=== PATIENT | female | born 1990 | race Caucasian/White ===

== ENCOUNTER 2021-08-22 13:20 | Observation (INO) | payer BC ==
[~2021-08-22] VITALS: Ht 160 cm; Wt 66.7 kg
[2021-08-22] MEDS ORDERED: PNV1TABL5 PO (13:36)
[2021-08-22 16:37] VITALS: BP 110/66
== END 2021-08-22 16:35 | disposition home or self-care (01) ==
LOC: MLD 13:20
PROVIDERS: ADMIT Obstetrics & Gynecology; ATTEND Obstetrics & Gynecology
DX: O36.8130 Decreased fetal movements, third trimester, not applicable or unspecified (principal); Z20.822 Contact with and (suspected) exposure to COVID-19; O48.0 Post-term pregnancy; Z3A.40 40 weeks gestation of pregnancy
CPT/HCPCS: 59025; 76815; 81000; 87426; G0378; Q0092

== ENCOUNTER 2021-08-29 14:30 | Inpatient (IN) | payer BC ==
[~2021-08-29] VITALS: Ht 160 cm; Wt 67.6 kg
[~2021-08-29 14:30] MED LIST: PNV1TABL5 PO
[2021-08-29] MEDS ORDERED: OXYTOCIN 20 UNITS in LACTATED RINGERS 1,000 ML IV SCH (14:50)
[2021-08-29] MEDS ORDERED: MORPHINE SULFATE 5 MG/ML VIAL IVP PRN (14:50)
[2021-08-29] MEDS ORDERED: ONDANSETRON 4 MG/2 ML VIAL IVP PRN (14:50)
[2021-08-29] MEDS ORDERED: METHYLERGONOVINE 0.2 MG/ML AMP IM PRN (14:50)
[2021-08-29 15:38] LABS: APPEARANCE,URINE CLEAR (CLEAR); BILIRUBIN,URINE NEGATIVE (NEGATIVE); BLOOD, URINE TRACE-I (NEGATIVE); COLOR,URINE YELLOW (YELLOW); LEUKOCYTE ESTERASE ,URINE NEGATIVE (NEGATIVE); NITRITE, URINE NEGATIVE (NEGATIVE); UGLUCOSE NEGATIVE (NEGATIVE)
[2021-08-29 15:43] LABS: BASOPHILS % (AUTO) 0.7 % (0.0-2.0); EOSINOPHILS # (AUTO) 0.1 K/uL (0-0.4); EOSINOPHILS % (AUTO) 1.3 % (0.0-4.0); HEMATOCRIT 40.4 % (36-48); HEMOGLOBIN 13.9 g/dL (12.0-16.0); LYMPHOCYTES # (AUTO) 1.6 K/uL (2.5-16.5); LYMPHOCYTES % (AUTO) 22.5 % (20.5-51.1); MEAN CORPUSCULAR HEMOGLOBIN 34 pg (27-31); MEAN CORPUSCULAR HGB CONC 34 g/dL (33-37); MEAN CORPUSCULAR VOLUME 99.4 fL (80-94); MONOCYTES # (AUTO) 0.6 K/uL (0.8-1.0); MONOCYTES % (AUTO) 8.1 % (1.7-9.3); NEUTROPHILS # (AUTO) 4.8 K/uL (1.8-7.7); NEUTROPHILS % (AUTO) 67.4 % (42.2-75.2); PLATELET COUNT (AUTO) 170 K/uL (140-450); RED BLOOD CELL COUNT(AUTO) 4.06 MIL/uL (4.20-5.40); WHITE BLOOD COUNT (AUTO) 7.1 K/uL (4.8-10.8)
[2021-08-29 15:58] LABS: PROTHROMBIN TIME 9.2 secs (10.8-13.4)
[2021-08-29 16:13] LABS: RBC,URINE 0-5 /HPF (0-5); WBC,URINE 0-5 /HPF (0-5)
[2021-08-29 16:14] LABS: OTHER CASTS, URINE None Seen /LPF (None Seen)
[2021-08-29 16:20] LABS: ALBUMIN 2.8 g/dL (3.4-5.0); ANION GAP 12.1 (8-16); CARBON DIOXIDE 22.6 mmol/L (21-32); CREATININE 0.7 mg/dL (0.6-1.3); POTASSIUM 3.7 mmol/L (3.5-5.1); TOTAL BILIRUBIN 0.1 mg/dL (0.0-1.0)
[2021-08-29] MEDS: LACTATED RINGERS 1,000 ML IV SCH ×3 (17:10→23:11)
[2021-08-29 17:55] VITALS: BP 119/74
[2021-08-29] MEDS ORDERED: MISOPROSTOL 25 MCG TAB VG PRN (18:00)
[2021-08-29] MEDS ORDERED: MORPHINE SULFATE 10 MG/ML VIAL ONE (22:07)
[2021-08-29] MEDS ORDERED: ROPIVACAINE 0.2%/NS PREMIX 200 ML EPI ONE (23:08)
[2021-08-29] MEDS ORDERED: fentaNYL citrate 0.05 MG/ML VIAL ONE (23:08)
[2021-08-30] MEDS: LACTATED RINGERS 1,000 ML IV SCH ×3 (05:26→21:40)
--- NOTE | 2021-08-30 09:22 | NUR ---
PATIENT HAS BEEN SCREENED AND CATEGORIZED LOW NUTRITION RISK. PATIENT WILL BE SEEN WITHIN 7 DAYS OF ADMISSION. 09/05/[address]
[2021-08-30] MEDS ORDERED: LIDOCAINE 1% 500 MG/50 ML VIAL ONE (10:12)
[2021-08-30] MEDS ORDERED: ROPIVACAINE 0.2%/NS PREMIX 200 ML EPI ONE (10:53)
[2021-08-30] MEDS ORDERED: OXYTOCIN 20 UNITS/LR PREMIX 1,000 ML IV ONE (12:55)
[2021-08-31] MEDS ORDERED: ROPIVACAINE 0.2%/NS PREMIX 200 ML EPI ONE (00:08)
[2021-08-31] MEDS ORDERED: ceFAZolin 1,000 MG VIAL ONE (02:11)
[2021-08-31] MEDS ORDERED: fentaNYL citrate 0.05 MG/ML VIAL ONE (02:47)
[2021-08-31] MEDS ORDERED: MIDAZOLAM 2 MG/2 ML VIAL ONE (02:48)
[2021-08-31] MEDS ORDERED: MEPERIDINE 50 MG/ML SYR ONE (02:49)
[2021-08-31] MEDS ORDERED: ONDANSETRON 4 MG/2 ML VIAL IVP PRN ×2 (03:55→10:55)
[2021-08-31] MEDS ORDERED: diphenhydrAMINE 50 MG/ML VIAL IVP PRN ×2 (03:55→10:55)
[2021-08-31] MEDS ORDERED: MEPERIDINE 25 MG/ML SYR IVP PRN (03:55)
--- NOTE | 2021-08-31 04:01 | NUR ---
RECEIVED CALL FROM L&D FOR TWO RTS PRESENT. EQUIPMENT SETUP AND CHECKED, BABY WAS BORN CRYING, PLACED ON WARMER, DRIED AND STIMULATED, BULB SUCTIONED MOUTH AND NOSE, NO SIGNS OF RESPIRATORY DISTRESS NOTED AT THIS TIME. BABY LEFT IN CARE OF RN.
[2021-08-31] MEDS: HYDROmorphone 1 MG/ML AMP IVP PRN ×3 (05:36→05:56)
[2021-08-31] MEDS ORDERED: HYDROmorphone PFS 2 MG/ML SYR ONE (05:38)
[2021-08-31] MEDS ORDERED: IBUPROFEN 800 MG TAB PO SCH (08:00)
[2021-08-31] MEDS ORDERED: METOCLOPRAMIDE 10 MG/2 ML INJ VIAL IVP PRN (10:55)
[2021-08-31] MEDS: KETOROLAC 30 MG/ML VIAL IVP SCH ×3 (11:34→23:51)
[2021-08-31] MEDS: OXYTOCIN 20 UNITS in LACTATED RINGERS 1,000 ML IV SCH ×2 (13:51→22:54)
[2021-08-31] MEDS: oxyCODONE/APAP 5/325 MG 1 TAB TAB PO PRN (21:06)
[2021-08-31] MEDS ORDERED: OXYTOCIN 20 UNITS/LR PREMIX 1,000 ML IV ONE (22:35)
[2021-09-01] MEDS: oxyCODONE/APAP 5/325 MG 1 TAB TAB PO PRN ×3 (03:04→15:46)
[2021-09-01 05:37] LABS: BASOPHILS % (AUTO) 0.3 % (0.0-2.0); EOSINOPHILS # (AUTO) 0.1 K/uL (0-0.4); EOSINOPHILS % (AUTO) 1.1 % (0.0-4.0); HEMATOCRIT 33.6 % (36-48); HEMOGLOBIN 11.3 g/dL (12.0-16.0); LYMPHOCYTES # (AUTO) 1.7 K/uL (2.5-16.5); LYMPHOCYTES % (AUTO) 13.9 % (20.5-51.1); MEAN CORPUSCULAR HEMOGLOBIN 34 pg (27-31); MEAN CORPUSCULAR HGB CONC 34 g/dL (33-37); MEAN CORPUSCULAR VOLUME 100.9 fL (80-94); MONOCYTES # (AUTO) 0.8 K/uL (0.8-1.0); MONOCYTES % (AUTO) 6.2 % (1.7-9.3); NEUTROPHILS # (AUTO) 9.5 K/uL (1.8-7.7); NEUTROPHILS % (AUTO) 78.5 % (42.2-75.2); PLATELET COUNT (AUTO) 136 K/uL (140-450); RED BLOOD CELL COUNT(AUTO) 3.33 MIL/uL (4.20-5.40); RED CELL DISTRIBUTION WIDTH 13.4 % (11.6-13.7)
[2021-09-01] MEDS: KETOROLAC 30 MG/ML VIAL IVP SCH (06:22)
[2021-09-01] MEDS ORDERED: DOCUSATE SODIUM 100 MG GELCAP PO PRN (15:00)
[2021-09-01] MEDS ORDERED: bisacodyL 5 MG TABEC PO PRN (15:00)
[2021-09-01] MEDS: SIMETHICONE 80 MG TAB.CHEW PO PRN (15:15)
[2021-09-01] MEDS: IBUPROFEN 600 MG TAB PO PRN (19:31)
[2021-09-02] MEDS: IBUPROFEN 600 MG TAB PO PRN ×3 (02:58→20:09)
[2021-09-02] MEDS: SIMETHICONE 80 MG TAB.CHEW PO PRN ×2 (02:59→08:55)
[2021-09-02] MEDS ORDERED: CAMERA MC ONE (03:39)
[2021-09-02] MEDS: oxyCODONE/APAP 5/325 MG 1 TAB TAB PO PRN (21:17)
[2021-09-03] MEDS: oxyCODONE/APAP 5/325 MG 1 TAB TAB PO PRN (04:50)
[2021-09-03] MEDS: SIMETHICONE 80 MG TAB.CHEW PO PRN (06:40)
[2021-09-03] MEDS: IBUPROFEN 600 MG TAB PO PRN (12:11)
== END 2021-09-03 16:02 | disposition home or self-care (01) | DRG 788 ==
LOC: MLD 14:30 → MFCC 08-31 06:07
PROVIDERS: ADMIT Obstetrics & Gynecology; ATTEND Obstetrics & Gynecology
PROC: 10D00Z1 Extraction of Products of Conception, Low, Open Approach (ICD-10-PCS; principal; 2021-08-31 03:00)
DX: O48.0 Post-term pregnancy (principal); O62.0 Primary inadequate contractions; O77.0 Labor and delivery complicated by meconium in amniotic fluid; O69.81X0 Labor and delivery complicated by cord around neck, without compression, not applicable or unspecified; Z37.0 Single live birth; Z3A.42 42 weeks gestation of pregnancy; Z20.822 Contact with and (suspected) exposure to COVID-19
CPT/HCPCS: 36415; 51702; 59200; 76815; 80053; 81001; 85025; 85610; 85730; 86592; 86762; 86886; 86900; 86901; 87340; 87653-90; J0690; J1170; J1885; J2001; J2175; J2250; J2270; J2405; J2590; J2795; J3010; J7120; Q0092